=== PATIENT | male | born 1980 | race Caucasian/White ===

== ENCOUNTER 2017-03-24 18:39 | Emergency (ER) | payer SELFPAY ==
--- NOTE | ~2017-03-24 | CT4 ---
[facility] Service of [facility] RADIOLOGY TEXT RESULTS PATIENT: ARTEM JALLOH JR LOCATION: SED : 78 UNIT #: [id number] AGE: [address]: Jah Canales MD SEX: M ORDER DR: [id number] [address] [address] [id number] E MR#: [id number] Acc #: [id number] NAME: ARTEM JALLOH JR : 1980 SEX: M STUDY DATE/TIME: 03/24/2017 UNIT: SED ROOM: STUDY DESCRIPTION: CT Abd and Pelv Wo Cont Attending Physician: Jah Canales M.D. Ordering Physician: Jah Canales M.D. MEDICAL IMAGING REPORT This report is preliminary unless electronic signature is present. EXAM CT abdomen and pelvis without contrast 03/24/2017 1930 hours HISTORY 36-year-old man with complaint of right groin pain for 1 day. Blood in urine today. COMPARISON None. TECHNIQUE Helical non-contrasted images were obtained from the lung bases through the pubic symphysis. No oral or intravenous contrast was administered. Sagittal and coronal reconstructions were performed. Total exam DLP 591 mGy/cm. This CT exam was performed with one or more of the following radiation dose reduction techniques: automatic exposure control, adjustment of mA and/or kV according to patient size, and iterative reconstruction. FINDINGS Images through the lung bases are clear. The distal esophagus is normal. There are no effusions. There is a calcified granuloma in the right middle lobe. Non-contrasted images through the abdomen demonstrate a normal appearance to the liver, spleen, pancreas, gallbladder and bile ducts. The adrenal glands are normal. The kidneys demonstrate no definite intrarenal calculi. There is a low-density lesion in the posterior lower pole right kidney measuring 1.4 cm. A benign cyst is favored. There is a low-density area and the superior aspect of the left kidney and the lateral mid-left kidney, also [facility] A Service of [facility] RADIOLOGY TEXT RESULTS PATIENT: ARTEM JALLOH JR LOCATION: SED : 79 UNIT #: [id number] AGE: [address]: Jah Canales MD SEX: M ORDER DR: felt likely cysts. There is no ureterectasis or ureteral calculus demonstrated on the left. There is no definite pelvocaliectasis or ureterectasis on the right. There is a right retroperitoneal calcification measuring 4 mm, which I believe is in the right ureter at the level of L5-S1. The distal right ureter and left ureter are normal. The bladder is normal. The stomach and small bowel are unremarkable. The appendix is normal. There is no colonic wall thickening. Bone window images demonstrate a negative lumbar spine. There are small sclerotic areas in the right sacrum and right medial ileum, most consistent with benign bone islands. IMPRESSION 1. There are rounded low-density areas in both kidneys, most suggestive of cysts. 2. There is a 4 mm right retroperitoneal calcification which I believe is in the right ureter at the level of the L5-S1 level. There is no significant pelvocaliectasis on either side. No intrarenal stones are seen. 3. Normal appendix. Dictated by... Toma Squires M.D. THIS IS AN ELECTRONICALLY VERIFIED REPORT Toma Squires M.D. at 03/25/2017 9:36 AM Ed TD: 03/24/2017 22:46 JOB #: [id number] MEDICAL IMAGING REPORT Page 1 of 1
[~2017-03-24 18:39] MED LIST: NO MEDICATIONS
[2017-03-24 18:52] LABS: URINE SOURCE CLEAN CATCH
[2017-03-24 18:54] LABS: URINE APPEARANCE CLEAR; URINE BILIRUBIN NEG (NEG); URINE BLOOD 3+ (NEG); URINE COLOR YELLOW; URINE GLUCOSE NEG (NORM); URINE KETONE NEG (NEG); URINE LEUKOCYTE ESTERASE NEG (NEG); URINE NITRATE NEG (NEG); URINE PROTEIN NEG (NEG); URINE SPECIFIC GRAVITY <=1.005 (1.003-1.035); URINE UROBILINOGEN 0.2 MG/DL (NORM)
[2017-03-24 18:55] LABS: MICRO INDICATED? YES
[2017-03-24 18:59] LABS: CULTURE INDICATED? NO; URINE BACTERIA NEG (NEG); URINE RBC 50-100 /[HPF] (0-2); URINE SQUAMOUS EPITHELIAL CELL FEW /[HPF]; URINE WBC 0-2 /[HPF] (0-5)
[2017-03-24 19:43] LABS: HEMATOCRIT 40.5 % (38.0-50.0); MEAN CORPUSCULAR HEMOGLOBIN 31.4 PG (28-34); MEAN CORPUSCULAR HGB CONC 34.5 g/dL (30-36); MEAN PLATELET VOLUME 7.5 FL (6.5-11.5); RED BLOOD COUNT 4.45 X10e (3.90-5.60); RED CELL DISTRIBUTION WIDTH 12.4 % (11.0-15.5)
[2017-03-24 20:00] LABS: BUN/CREATININE RATIO 13.63; CALCIUM SERUM 9.6 mg/dL (8.4-10.2); CREATININE SERUM 1.1 mg/dL (0.6-1.4); GLOM FILT RATE Estimated 85.3 mL/min (>60)
== END 2017-03-24 20:30 | disposition home or self-care (01) ==
LOC: SED 18:39
PROVIDERS: Emergency Medicine
DX: N20.1 Calculus of ureter (principal); Z87.442 Personal history of urinary calculi
CPT/HCPCS: 36415; 74176; 80048; 81003; 85027; 99284; J1885